=== PATIENT | male | born 1975 | race Caucasian/White ===

== ENCOUNTER 2016-07-30 08:57 | Emergency (ER) | payer BC ==
[2016-07-30 10:22] VITALS: BP 116/71
--- NOTE | 2016-07-30 10:37 | UC ---
FLU HPI - HPI Summary HPI Summary: The patient comes in today for: 1. Headache, face pain, sore throat, body aches, fever/chills, rhinitis, cough: Onset: 2 days ago. Palliative/provocative: Nothing makes his symptoms better or worse. Quality: Ache Region: Generalized body. Severity: /10 Time: Constant. Associated symptoms: Headache: Frontal, and maxillary. Rhinitis: "not a ton is coming out--mostly clear." Cough production: "Not much is coming up--little green bit." Home Rx: Tylenol, but nothing today. Flu vaccine: He got this. He has not been exposed to the flu. He desires the flu test. 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 * - History of Current Complaint Chief Complaint: UCRespiratory Stated Complaint: COUGH,SORE THROAT,FEVER,CHILLS Time Seen by Provider: 07/30/16 10:32 Hx Obtained From: Patient - Allergy/Home Medications Allergies/Adverse Reactions: Allergies Allergy/AdvReac Type Severity Reaction Status Date / Time No Known Allergies Allergy Verified 07/30/16 10:23 PMH/Surg Hx/FS Hx/Imm Hx Previously Healthy: Yes Endocrine History Of: Denies: Diabetes, Thyroid Disease, Hyperthyroidism, Hypothyroidism, Dyslipidemia Cardiovascular History Of: Denies: Cardiac Disorders, Hypertension, Pacemaker/ICD, Myocardial Infarction , Congestive Heart Failure, Atrial Fibrillation, Deep Vein Thrombosis, Bleeding Disorders Respiratory History Of: Reports: Asthma - HE states that he rarely uses an albuterol inhaler. Denies: COPD, Bronchitis, Pneumonia, Pulmonary Embolism GI/ History Of: Denies: Gastroesophageal Reflux, Ulcer, Gastrointestinal Bleed, Gall Bladder Disease, Kidney Stones, Diverticulitis, Renal Disease, Urosepsis Neurological History Of: Denies: TIA, CVA, Dementia, Seizures, Migraine Psychological History Of: Denies: Anxiety, Depression, Bipolar Disorder, Schizophrenia, Post Traumatic Stress Disorder Cancer History Of: Denies: Lung Cancer, Colorectal Cancer, Breast Cancer, Prostate Cancer, Cervical Cancer Other History Of: Negative For: HIV, Hepatitis B, Hepatitis C, Anticoagulant Therapy - Surgical History Surgical History: Yes Surgery Procedure, Year, and Place: tonsilectomy. hernia. testicle removal - Family History Known Family History: Positive: Hypertension Negative: Cardiac Disease - Social History Occupation: Employed Full-time Alcohol Use: Weekly Substance Use Type: None Smoking Status (MU): Never Smoked Tobacco Review of Systems Constitutional: Fever - 101.7 this morning. Skin: Negative Eyes: Negative ENT: Sore Throat, Nasal Discharge Respiratory: Cough Cardiovascular: Negative Gastrointestinal: Negative Genitourinary: Negative All Other Systems Reviewed And Are Negative: Yes Physical Exam Triage Information Reviewed: Yes Appearance: No Pain Distress, Well-Nourished, Ill-Appearing - He has a nasal sound to his voice and is slow moving. Vital Signs: Initial Vital Signs Temp 97.9 F 07/30/16 10:19 Pulse 81 07/30/16 10:19 Resp 16 07/30/16 10:19 BP 116/71 07/30/16 10:19 Pulse Ox 98 07/30/16 10:19 Vital Signs Reviewed: Yes Eyes: Positive: Conjunctiva Clear. Negative: Discharge ENT: Positive: Hearing grossly normal, Pharyngeal erythema. Negative: Nasal congestion, Nasal drainage, TM bulging, TM dull, TM red, Tonsillar swelling, Tonsillar exudate Dental: Negative: Gross Decay/Caries @, Dental Fracture @ Neck: Positive: Supple, Nontender, No Lymphadenopathy. Negative: Nuchal Rigidity Respiratory: Positive: Lungs clear, No respiratory distress, No accessory muscle use. Negative: Rhonchi, Wheezing Cardiovascular: Positive: RRR, No Murmur Abdomen Description: Positive: Nontender, No Organomegaly, Soft. Negative: Distended, Guarding Musculoskeletal: Positive: Strength Intact, ROM Intact Neurological: Positive: Alert, Muscle Tone Normal, Fatigued Psychological: Positive: Age Appropriate Behavior, Consolable Skin: Negative: rashes, breakdown Diagnostics - Laboratory Diagnostic Studies Completed/Ordered: Strep: (-). Flu: (-) Flu Course/Dx - Differential Dx/Diagnosis Provider Diagnoses: Patient told of his treatment options. He would like to go with Naproxen and an antibiotic. Discharge - Discharge Plan Condition: Stable Disposition: HOME Patient Education Materials: Viral Syndrome (ED), Upper Respiratory Infection ( ED) Forms: *Work Release Referrals: August Ren DO [Primary Care Provider] - 1 Week (Please see your primary care provider in about a week to see how well you are doing. If you get worse, please be seen sooner.)
== END 2016-07-30 11:26 | disposition home or self-care (01) ==
LOC: UCCORT 08:57
DX: R51 Headache (principal); J06.9 Acute upper respiratory infection, unspecified; J32.9 Chronic sinusitis, unspecified; J40 Bronchitis, not specified as acute or chronic
CPT/HCPCS: 87502; 87651; 99212; G0463

== ENCOUNTER 2018-03-27 19:12 | Emergency (ER) | payer BC ==
[2018-03-27] MEDS ORDERED: Ibuprofen TAB* 600 MG PO ONE (21:10)
--- NOTE | 2018-03-27 21:10 | UC ---
Throat Pain/Nasal Loco HPI - HPI Summary HPI Summary: 42-year-old male comes into the clinic tonight with 2 day history of headache fever runny nose sore throat and body aches. He is also nauseous. Denies any neck stiffness. No cough or chest congestion. He's taken some over-the- counter remedies which have not helped - History of Current Complaint Stated Complaint: HEADACHE, FEVER, SORE THROAT Time Seen by Provider: 03/27/18 20:54 - Allergies/Home Medications Allergies/Adverse Reactions: Allergies Allergy/AdvReac Type Severity Reaction Status Date / Time No Known Allergies Allergy Verified 03/27/18 21:21 Home Medications: Home Medications NK [No Home Medications Reported] 03/27/18 [History Confirmed 03/27/18] PMH/Surg Hx/FS Hx/Imm Hx Other History Of: Negative For: HIV, Hepatitis B, Hepatitis C, Anticoagulant Therapy - Surgical History Surgical History: Yes Surgery Procedure, Year, and Place: tonsilectomy. hernia. testicle removal - Family History Known Family History: Positive: Hypertension Negative: Cardiac Disease - Social History Alcohol Use: Weekly Substance Use Type: None Smoking Status (MU): Never Smoked Tobacco Review of Systems Constitutional: Fever, Chills Skin: Negative Eyes: Negative ENT: Sore Throat, Nasal Discharge, Sinus Congestion, Sinus Pain/Tenderness Respiratory: Negative Cardiovascular: Negative Gastrointestinal: Nausea Motor: Negative Neurovascular: Negative Musculoskeletal: Negative Neurological: Negative Is Patient Immunocompromised?: No All Other Systems Reviewed And Are Negative: Yes Physical Exam Triage Information Reviewed: Yes Appearance: Ill-Appearing - MILD Vital Signs Reviewed: Yes Eye Exam: Normal Eyes: Positive: Conjunctiva Clear ENT: Positive: Pharyngeal erythema, Nasal congestion, Nasal drainage, TMs normal Neck exam: Normal Neck: Positive: Supple Respiratory: Positive: Lungs clear, Normal breath sounds, No respiratory distress Cardiovascular: Positive: RRR Musculoskeletal Exam: Normal Musculoskeletal: Positive: Strength Intact, ROM Intact Neurological Exam: Normal Neurological: Positive: Alert Psychological Exam: Normal Psychological: Positive: Age Appropriate Behavior Skin Exam: Normal Throat Pain/Nasal Course/Dx - Course Course Of Treatment: Rapid strep and influenza's were negative. This was discussed with the patient. We discussed viral and bacterial infections and the role of antibiotics. At this time the patient prefers to have a prescription for an antibiotic. - Differential Dx/Diagnosis Provider Diagnoses: PHARYNGITIS. FEVER. MYALGIAS Discharge - Sign-Out/Discharge Documenting (check all that apply): Patient Departure All imaging exams completed and their final reports reviewed: No Studies - Discharge Plan Condition: Stable Disposition: HOME Patient Education Materials: Pharyngitis (ED), Fever in Adults (ED), Musculoskeletal Pain (ED) Referrals: [facility] [place] [facility] [Outside] Additional Instructions: FOLLOW UP WITH YOUR DOCTOR IF NOT COMPLETELY IMPROVED. GET RECHECKED FOR ANY WORSENING OF YOUR CONDITION OR QUESTIONS OR CONCERNS. - Billing Disposition and Condition Condition: STABLE Disposition: Home
[2018-03-27 21:27] VITALS: BP 122/58
== END 2018-03-27 22:05 | disposition home or self-care (01) ==
LOC: UCCORT 19:12
DX: J02.9 Acute pharyngitis, unspecified (principal); R50.9 Fever, unspecified; M79.10 Myalgia, unspecified site
CPT/HCPCS: 87651; 99212; A9270-GY; G0463

== ENCOUNTER 2018-08-03 11:10 | Emergency (ER) | payer BC ==
[2018-08-03 11:34] VITALS: BP 112/70
[2018-08-03 12:24] LABS: Influenza A Molecular POSITIVE (Negative)
--- NOTE | 2018-08-03 12:36 | UC ---
FLU HPI - HPI Summary HPI Summary: P tc/o sudden onset of fever, chills, nasal and chest congestion, body aches, cough, "chest tightness" x 1 day - History of Current Complaint Chief Complaint: UCRespiratory Stated Complaint: FLU SXS Time Seen by Provider: 08/03/18 12:35 Hx Obtained From: Patient Onset/Duration: Sudden Onset, Still Present Severity Currently: Moderate Severity Initially: Moderate Pain Intensity: 6 Associated Signs & Symptoms: Positive: Fever, Myalgia, Cough, Nasal Congestion Related Hx: Possible Flu/Infectious Exposure - Risk Factors Influenza Risk Factors: Negative - Allergy/Home Medications Allergies/Adverse Reactions: Allergies Allergy/AdvReac Type Severity Reaction Status Date / Time seasonal Allergy Congestion Uncoded 08/03/18 11:35 Home Medications: Home Medications Acetaminophen [Acetaminophen Extra Strength] 1,000 mg PO Q6H PRN 08/03/18 [ History Confirmed 08/03/18] Albuterol HFA INHALER* [Ventolin HFA Inhaler*] 2 puff INH Q4H PRN 08/03/18 [ History Confirmed 08/03/18] Doxylam/PE/Dm/Acetaminophen/GG [Vicks Dayquil-Nyquil Severe Lq] 1 liq PO BEDTIME PRN 08/03/18 [History Confirmed 08/03/18] Loratadine [Claritin] 10 mg PO DAILY PRN 08/03/18 [History Confirmed 08/03/18] PMH/Surg Hx/FS Hx/Imm Hx Previously Healthy: Yes Other History Of: Negative For: HIV, Hepatitis B, Hepatitis C, Anticoagulant Therapy - Surgical History Surgical History: Yes Surgery Procedure, Year, and Place: tonsilectomy. umbilical hernia. testicle removal - Family History Known Family History: Positive: Hypertension Negative: Cardiac Disease - Social History Occupation: Employed Full-time Lives: With Family Alcohol Use: Weekly Alcohol Amount: 6-9 Substance Use Type: None Smoking Status (MU): Never Smoked Tobacco Have You Smoked in the Last Year: No - Immunization History Most Recent Tetanus Shot: UTD Review of Systems All Other Systems Reviewed And Are Negative: Yes Constitutional: Positive: Fever, Chills, Fatigue Skin: Positive: Negative Eyes: Positive: Negative ENT: Positive: Sore Throat, Sinus Congestion Respiratory: Positive: Cough Cardiovascular: Positive: Negative Gastrointestinal: Positive: Negative Genitourinary: Positive: Negative Motor: Positive: Negative Neurovascular: Positive: Negative Musculoskeletal: Positive: Myalgia Neurological: Positive: Negative Psychological: Positive: Negative Is Patient Immunocompromised?: No Physical Exam Triage Information Reviewed: Yes Appearance: Ill-Appearing Vital Signs: Initial Vital Signs Temp 99.8 F 08/03/18 11:26 Pulse 88 08/03/18 11:26 Resp 22 08/03/18 11:26 BP 112/70 08/03/18 11:26 Pulse Ox 99 08/03/18 11:26 Vital Signs Reviewed: Yes Eye Exam: Normal ENT: Positive: Nasal congestion Dental Exam: Normal Neck exam: Normal Respiratory Exam: Normal Cardiovascular Exam: Normal Musculoskeletal Exam: Normal Neurological Exam: Normal Psychological Exam: Normal Skin Exam: Normal Flu Course/Dx - Differential Dx/Diagnosis Differential Diagnosis/HQI/PQRI: Influenza Provider Diagnosis: Influenza A Discharge - Sign-Out/Discharge Documenting (check all that apply): Patient Departure All imaging exams completed and their final reports reviewed: No Studies - Discharge Plan Condition: Stable Disposition: HOME Prescriptions: Oseltamivir CAP* [Tamiflu CAP*] 75 mg PO Q12H #10 cap predniSONE TAB* [Deltasone 10 MG TAB*] 30 mg PO DAILY #12 tab Patient Education Materials: Influenza (ED) Referrals: [facility] [Outside] - If Needed No Primary Care Phys,NOPCP [Primary Care Provider] - - Billing Disposition and Condition Condition: STABLE Disposition: Home - Attestation Statements Provider Attestation: I was available for consult. This patient was seen by the DIMITRY. The patient was not presented to, seen by, or examined by me. EK
== END 2018-08-03 12:45 | disposition home or self-care (01) ==
LOC: UCCORT 11:10
DX: J10.1 Influenza due to other identified influenza virus with other respiratory manifestations (principal); Z91.09 Other allergy status, other than to drugs and biological substances
CPT/HCPCS: 99212; G0463

== ENCOUNTER 2019-02-05 10:20 | Emergency (ER) | payer BC, OTHER ==
[2019-02-05 10:39] VITALS: BP 118/80
--- NOTE | 2019-02-05 10:44 | UC ---
Ear Complaint HPI - HPI Summary HPI Summary: 43-year-old male who thinks he may have a piece of his Q-tip in his right ear. He was cleaning his ear last evening and he said not all of the cotton was on the end of the Q-tip however he did not find it on the floor or anywhere else we thinks it's in his ear. - History of Current Complaint Chief Complaint: UCEar Stated Complaint: FORIEGN BODY RIGHT EAR Time Seen by Provider: 02/05/19 10:42 Hx Obtained From: Patient Onset/Duration: Sudden Onset Severity Initially: Mild Severity Currently: None Pain Intensity: 0 Aggravating Factors: Nothing Alleviating Factors: Nothing Associated Signs/Symptoms: Negative: Foreign Body Sensation - Allergies/Home Medications Allergies/Adverse Reactions: Allergies Allergy/AdvReac Type Severity Reaction Status Date / Time seasonal Allergy Congestion Uncoded 02/05/19 10:37 PMH/Surg Hx/FS Hx/Imm Hx Previously Healthy: Yes Other History Of: Negative For: HIV, Hepatitis B, Hepatitis C, Anticoagulant Therapy - Surgical History Surgical History: Yes Surgery Procedure, Year, and Place: tonsilectomy. umbilical hernia. testicle removal - Family History Known Family History: Positive: Hypertension Negative: Cardiac Disease - Social History Alcohol Use: Weekly Alcohol Amount: 3-4 nights weekly Substance Use Type: None Smoking Status (MU): Never Smoked Tobacco Have You Smoked in the Last Year: No - Immunization History Most Recent Tetanus Shot: UTD Review of Systems All Other Systems Reviewed And Are Negative: Yes ENT: Positive: Other - Patient thinks he may have a piece of Q-tip in his ear. Is Patient Immunocompromised?: No Physical Exam Triage Information Reviewed: Yes Appearance: Well-Appearing, No Pain Distress, Well-Nourished Vital Signs: Initial Vital Signs Temp 98.2 F 02/05/19 10:37 Pulse 72 02/05/19 10:37 Resp 18 02/05/19 10:37 BP 118/80 02/05/19 10:37 Pulse Ox 99 02/05/19 10:37 Vital Signs Reviewed: Yes Eyes: Positive: Conjunctiva Clear ENT: Positive: TMs normal, Other - No foreign body noted in either ear. Psychological Exam: Normal Ear Complaint Course/Dx - Course Course Of Treatment: I was able to visualize the entire tympanic membrane and ear canals both ears and no foreign body is noted. Patient was advised to switch to a better brand of Q-tips such as Q-tips brand, however was also advised not to stick anything in his ears. - Differential Dx/Diagnosis Provider Diagnosis: Foreign body of ear, right Discharge - Sign-Out/Discharge Documenting (check all that apply): Patient Departure All imaging exams completed and their final reports reviewed: No Studies - Discharge Plan Condition: Good Disposition: HOME Referrals: Carleen Campos MD [Primary Care Provider] - Additional Instructions: Follow-up with your primary care provider as needed. Change to Q-tip brand Q- tips - Billing Disposition and Condition Condition: GOOD Disposition: Home
== END 2019-02-05 10:50 | disposition home or self-care (01) ==
LOC: UCCORT 10:20
DX: T16.1XXA Foreign body in right ear, initial encounter (principal); Y93.E8 Activity, other personal hygiene; Y92.9 Unspecified place or not applicable; J30.2 Other seasonal allergic rhinitis
CPT/HCPCS: 99211; G0463